=== PATIENT | female | born 1980 | race Caucasian/White ===

== ENCOUNTER 2023-10-18 00:09 | Emergency (ER) | payer OTHER, SELFPAY ==
[2023-10-18 00:12] VITALS: BP 156/109
[2023-10-18 00:43] LABS: ALT (SGPT) 20 U/L (0-35); AST (SGOT) 26 U/L (14-36); Albumin 4.5 g/dl (3.5-5.0); Alkaline Phosphatase 111 U/L (38-126); Blood Urea Nitrogen 10 mg/dl (7-17); Calcium 9.3 mg/dl (8.4-10.2); Carbon Dioxide 19 mmol/L (22-30); Chloride 105 mmol/L (98-107); Glucose 149 mg/dl (70-99); Lipase 107 U/L (23-300); Potassium 3.6 mmol/L (3.5-5.1); Sodium 136 mmol/L (135-145); Total Bilirubin 0.7 mg/dl (0.2-1.3); eGFR > 60.00
[2023-10-18 00:52] LABS: Urine Albumin 1+ (Neg - Trace); Urine Bilirubin Negative (Negative); Urine Character Slightly Cloudy (Clear); Urine Color Amber; Urine Glucose Negative (Negative); Urine Ketone Trace (Negative); Urine Leukocyte Trace (Negative); Urine Nitrite Negative (Negative); Urine Occult Blood 4+ (Negative); Urine Urobilinogen Negative (Neg - 1+)
[2023-10-18 00:59] LABS: % Basophils 0.4 % (0-2); % Eosinophils 0.9 % (0-6); % Immature Granulocytes 1.4 % (0-0.5); % Lymphocytes 19.1 % (20.5-51.1); % Monocytes 3.8 % (1.7-9.3); % Neutrophils 74.4 % (42.2-75.2); Absolute Basophils 0.1 10^3/uL (0-0.2); Absolute Eosinophils 0.1 10^3/uL (0-0.7); Absolute Immature Granulocytes 0.2 10^3/uL (0-0.05); Absolute Lymphocytes 2.7 10^3/uL (1.2-3.4); Absolute Monocytes 0.5 10^3/uL (0.1-0.6); Absolute Neutrophils 10.6 10^3/uL (1.4-6.5); Hematocrit 38.7 % (37.0-47.0); Hemoglobin 14.3 g/dL (12.0-16.0); Mean Corpuscular Volume 83.9 fL (81.0-99.0); Mean Platelet Volume 9.3 fL (7.4-10.4); Nucleated Red Blood Cells % 0 %; Platelet Count 389 10^3/uL (130-400); Red Blood Cell Count 4.61 10^6/uL (4.20-5.40); Red Cell Dist. Width 11.9 % (11.5-14.5); White Blood Cell Count 14.2 10^3/uL (4.8-10.8)
[2023-10-18] MEDS: NSS 1000 IV (01:06)
[2023-10-18] MEDS: TORADOL 30 MG IV (01:06)
[2023-10-18 01:10] LABS: Urine Red Blood Cell >100 /HPF (0-2); Urine Squamous Cell >30 /LPF (Few)
--- NOTE | 2023-10-18 02:08 | ED.GENMED ---
History of Present Illness
General
Chief Complaint: Abdominal Pain
Source: patient
Exam Limitations: none
Time Seen by Provider: 10/18/23 00:55
Nursing documentation reviewed up to this point in time: agreed with
Travel History
Have you had any contact with someone who has COVID-19?: No
Do you have any symptoms of coronavirus? Fever > 100 degrees, chills, cough, shortness of breath, sore throat, loss of taste or smell, muscle aches, or headache?: No
History of Present Illness
History of Present Illness:
Patient to ED with complaint of sudden onset right flank pain. Pain started approx 3 hours ago. Reports nausea but no vomiting. PMH of kidney stones. Unsure if this pain feels the same. Denies fever/chills Brought to ED by spouse for eval
Past History
Past History
ED Past Medical History: HTN
ED Past Surgical History: None
Social History
Tobacco: Non-smoker
Review of Systems
Review of Systems
Allergies reviewed?: Yes
All Other Systems: ROS reviewed and negative except as documented in HPI and ROS
Constitutional: Reports no symptoms
EENT: Reports no symptoms
Respiratory: Reports no symptoms
Cardiac: Reports no symptoms
ABD/GI: Reports no symptoms
: Reports flank pain
Musculoskeletal: Reports no symptoms
Skin: Reports no symptoms
Neurological: Reports no symptoms
Psychiatric: Reports no symptoms
Phy Exam
General Physical Exam
General Presentation: well appearing and moderate distress
General age: appears stated age
General Skin: warm and dry
General Habitus: normal
General Mental: alert
General Hydration: appears well hydrated
Gastrointestinal Exam
Gastrointestinal Exam: normal bowel sounds, soft, no organomegaly and no cva tenderness
Palpation: left upper quadrant: No tenderness, left lower quadrant: No tenderness, right upper quadrant: No tenderness and right lower quadrant: Mild tenderness
Musculoskeletal Exam
Musculoskeletal Exam: neuro vasc intact
Skin Exam
Skin Exam: normal color, warm/dry and no rash
Psychiatric Exam
Psychiatric Exam: normal mood/affect
Course
Orders/Labs/Results
Orders:
Orders
10/18/23 00:24
Complete Blood Count/With Diff Urgent
Comprehensive Metabolic Panel Urgent
Lipase Urgent
10/18/23 00:29
Urinalysis Reflex To Culture Urgent
Date Specimen was Collected: 10/18/23
Time Specimen was Collected: 00:28
Urine Microscopic Reflex Cult Urgent
10/18/23 01:00
Ketorolac [Toradol] 30 mg .ROUTE .STK-MED ONE
10/18/23 01:01
0.9% Sodium Chloride 1000 ml [Nss] 1,000 ml IV BOLUS
Ketorolac [Toradol] 30 mg IV NOW STA
10/18/23 01:03
CT Abd/pel Without Iv Or Oral Urgent
Comment:
Reason For Exam: Right flank pain
10/18/23 02:08
HYDROmorphone [Dilaudid] 0.5 mg IV NOW STA
Ondansetron Injectable [Zofran] 4 mg IV NOW STA
10/18/23 02:13
Tamsulosin [Flomax] 0.4 mg PO NOW STA
Abnormal Lab Results
10/18/23 10/18/23
00:24 00:29
WBC 14.2 H 10^3/uL
(4.8-10.8)
Abs Immat Gran (auto) 0.2 H 10^3/uL
(0-0.05)
Absolute Neuts (auto) 10.6 H 10^3/uL
(1.4-6.5)
Immature Gran % 1.4 H %
(0-0.5)
Lymphocytes % 19.1 L %
(20.5-51.1)
Carbon Dioxide 19 L mmol/L
(22-30)
Glucose 149 H mg/dl
(70-99)
Urine Ketones Trace A
(Negative)
Ur Occult Blood Reflex 4+ A
(Negative)
Leukocyte Esterase Rfl Trace A
(Negative)
Urine RBC >100 A /HPF
(0-2)
Urine Albumin (Reflex) 1+ A
(Neg - Trace)
10/18/23 00:24
10/18/23 00:24
Vital Signs
Initial and Last Documented VS:
Initial Vital Signs
Temp Pulse Resp BP Pulse Ox
98.1 F 88 20 156/109 98
10/18/23 00:12 10/18/23 00:12 10/18/23 00:12 10/18/23 00:12 10/18/23 00:12
Last Documented Vital Signs
Temp Pulse Resp BP Pulse Ox
98.1 F 88 20 156/109 98
10/18/23 00:12 10/18/23 00:12 10/18/23 00:12 10/18/23 00:12 10/18/23 00:12
*Radiology
Radiology exam reviewed: radiology read reviewed
*Pulse Oximetry
Patient hypoxic: no
*Critical Care Note
Total Time (30-74mins, 75-104mins- exclusive of procedures): Not Applicable
Update Note
Update Note:
4mm stone right ureter with mild hydro. Discussed findings with patient. Will start Flomax in dept. She will be discharged home and will follo wup with urology. Given instructions on s/s to return to ED and she is agreeable to plan
ED Attending Note
-
Portions of this chart may have been created with voice recognition software.� Occasional wrong word or��sound alike� substitutions may have occurred due to the inherent limitations of voice recognition software.
Discharge Plan
Departure
Patient Disposition: Home (Routine Discharge)
Date of Disposition: 10/18/23
Time of Disposition: 02:13
Patient with high blood pressure during this ER visit?: No
Condition: Good
Covid-19: Not Applicable
Discharge Problem:
Kidney stone
Instructions: Kidney Stones (DC)
Prescriptions:
New
oxycodone-acetaminophen [Percocet] 5-325 mg tablet
1 tab PO Q4HPRN PRN (Reason: pain) Qty: 12 0RF
tamsulosin [Flomax] 0.4 mg capsule
0.4 mg PO DAILY Qty: 14 0RF
No Action
Motrin 100 MG tablet
600 mg PO PRN PRN (Reason: pain) Qty: 0 0RF
valsartan 160 mg Capsule
160 mg PO DAILY
hydrochlorothiazide 25 mg Tablet
25 mg PO DAILY
sertraline 50 mg Tablet
50 mg PO DAILY
Referrals:
Jacoby Vargas MD [Family Provider] -
Joe Pitt MD [Active] - Call in 1-3 days for appt
Activity Restrictions/Additional Instructions:
Return to the emergency department immediately for fever/chills, increasing pain, vomiting, or for any further concerns.
Interventions
Interventions:
*Risk Screen - Suicide Last Done: 10/18/23 00:12
*General Assessment Last Done: 10/18/23 00:12
*Neglect/Abuse Screening Last Done: 10/18/23 00:12
ED- Fall Risk Assessment Last Done: 10/18/23 00:58
[place]-Bonmcz-Vfrezjeama Assessment Last Done: 10/18/23 00:58
[2023-10-18] MEDS: FLOMAX 0.400000000000000022 MG PO (02:25)
[2023-10-18] MEDS: ZOFRAN 4 MG IV (02:26)
[2023-10-18] MEDS: DILAUDID 0.5 MG IV (02:26)
== END 2023-10-18 02:41 | disposition home or self-care (01) ==
LOC: EMR 00:09
PROVIDERS: Emergency Medicine; EMERGENCY PHYSICIAN Emergency Medicine; FAMILY PHYSICIAN Family Medicine
DX: N13.2 Hydronephrosis with renal and ureteral calculous obstruction (principal); I10 Essential (primary) hypertension; F41.9 Anxiety disorder, unspecified; Z87.442 Personal history of urinary calculi; Z88.5 Allergy status to narcotic agent; Z88.8 Allergy status to other drugs, medicaments and biological substances
CPT/HCPCS: 99284; 96374; 96375 ×2; 96361; 74176; 80053; 81003; 81015; 83690; 85025

== ENCOUNTER 2023-10-20 20:26 | Observation (INO) | payer OTHER, SELFPAY ==
[2023-10-20] VITALS (10 sets, daily range): BP systolic 140–156; BP diastolic 90–103; BMI 28.7
[2023-10-20] MEDS: ZOFRAN ODT (ORALLY DISINTEGRATING) 4 MG PO (11:51)
[2023-10-20 12:00] LABS: % Basophils 0.2 % (0-2); % Eosinophils 0.3 % (0-6); % Immature Granulocytes 0.6 % (0-0.5); % Lymphocytes 12.1 % (20.5-51.1); % Monocytes 4.1 % (1.7-9.3); % Neutrophils 82.7 % (42.2-75.2); Absolute Eosinophils 0.1 10^3/uL (0-0.7); Absolute Immature Granulocytes 0.1 10^3/uL (0-0.05); Absolute Lymphocytes 2.1 10^3/uL (1.2-3.4); Absolute Monocytes 0.7 10^3/uL (0.1-0.6); Absolute Neutrophils 14.3 10^3/uL (1.4-6.5); Hematocrit 41.3 % (37.0-47.0); Hemoglobin 14.9 g/dL (12.0-16.0); Mean Corp Hgb Conc. 36.1 g/dL (33.0-37.0); Mean Corpuscular Hgb 30.8 pg (27.0-31.0); Mean Corpuscular Volume 85.5 fL (81.0-99.0); Mean Platelet Volume 9.1 fL (7.4-10.4); Nucleated Red Blood Cells % 0 %; Platelet Count 421 10^3/uL (130-400); Red Blood Cell Count 4.83 10^6/uL (4.20-5.40); Red Cell Dist. Width 11.9 % (11.5-14.5); White Blood Cell Count 17.3 10^3/uL (4.8-10.8)
[2023-10-20 12:02] LABS: Urine Albumin Trace (Neg - Trace); Urine Bilirubin Negative (Negative); Urine Character Clear (Clear); Urine Color Yellow; Urine Glucose Negative (Negative); Urine Ketone 3+ (Negative); Urine Leukocyte Negative (Negative); Urine Nitrite Negative (Negative); Urine Occult Blood 2+ (Negative); Urine Specific Gravity 1.015 (<1.030); Urine Urobilinogen Negative (Neg - 1+)
[2023-10-20 12:14] LABS: Urine Squamous Cell >30 /LPF (Few); Urine White Cell 0-2 /HPF (0-5)
[2023-10-20 12:22] LABS: AST (SGOT) 27 U/L (14-36); Albumin 4.8 g/dl (3.5-5.0); Alkaline Phosphatase 122 U/L (38-126); Blood Urea Nitrogen 11 mg/dl (7-17); Calcium 9.7 mg/dl (8.4-10.2); Carbon Dioxide 26 mmol/L (22-30); Chloride 98 mmol/L (98-107); Glucose 113 mg/dl (70-99); Potassium 3.6 mmol/L (3.5-5.1); Sodium 136 mmol/L (135-145); Total Bilirubin 1.5 mg/dl (0.2-1.3); Total Protein 8.3 g/dl (6.3-8.2); eGFR > 60.00
[2023-10-20 12:27] LABS: ALT (SGPT) 31 U/L (0-35)
[2023-10-20] MEDS: DILAUDID 0.5 MG IV (14:38)
[2023-10-20] MEDS: NSS 1000 IV (14:39)
--- NOTE | 2023-10-20 14:39 | ED.GENMED ---
History of Present Illness
General
Chief Complaint: Flank Pain
Source: patient
Exam Limitations: none
Time Seen by Provider: 10/20/23 14:23
Nursing documentation reviewed up to this point in time: agreed with
Travel History
Have you had any contact with someone who has COVID-19?: No
Do you have any symptoms of coronavirus? Fever > 100 degrees, chills, cough, shortness of breath, sore throat, loss of taste or smell, muscle aches, or headache?: No
History of Present Illness
History of Present Illness:
43-year-old female with history of hypertension who presents to the emergency room for evaluation of flank pain. Patient was seen here 2 days ago with right flank pain was diagnosed with a right-sided kidney stone. She was discharged with Flomax
and Percocet for pain control. She says that pain was reasonably well-controlled for 24 hours but yesterday became much more severe and has been constant since then. She says that it is not adequately controlled with lnii-kyz-ycwkeau meds and
Percocet and she is now having significant nausea with vomiting and so she returned to the emergency room. She has not had any fevers or chills. No dysuria or hematuria. She denies any other new complaints.
Past History
Past History
ED Past Medical History: HTN
ED Past Surgical History: None
Social History
Tobacco: Non-smoker
Review of Systems
Review of Systems
All Other Systems: ROS reviewed and negative except as documented in HPI and ROS
Constitutional: Denies fever or chills
Respiratory: Denies trouble breathing
Cardiac: Denies chest pain
ABD/GI: Reports nausea and vomiting; Denies abdominal pain
: Reports flank pain; Denies dysuria or bleeding
Musculoskeletal: Denies neck pain or back pain
Neurological: Denies headache, weakness or numbness
Phy Exam
Physical Exam
Physical Exam:
General: Awake, alert, oriented x3; appears mildly uncomfortable
Head: Normocephalic, atraumatic
Eyes: Conjunctiva normal, sclera anicteric
Throat: Airway intact, handling secretions
Neck: Trachea midline, supple without meningismus
Lungs: Clear to auscultation bilaterally, no wheezing, rales, rhonchi
Heart: Tachycardia with regular rhythm, no murmurs, gallops, or rubs
Abd: Soft, non distended, nontender
Back: No CVA tender
Neuro: Cranial nerves grossly intact, speech fluid
Skin: no rash
Extremities: No edema in extremities, warm well-perfused
Scores
Heart Failure Risk
Heart Failure Risk Score: Not Applicable
Heart Score for Chest Pain Patients
STEMI patient?: Not applicable
Withdrawal Assessment of Alcohol
Withdrawal Assessment Completed?: Not applicable
Course
Orders/Labs/Results
Orders:
Orders
10/20/23 11:49
Ketorolac [Toradol] 30 mg .ROUTE .STK-MED ONE
Ondansetron Orally Disint [Zofran Odt (Orally Disintegrating)] 4 mg .ROUTE .STK-MED ONE
10/20/23 11:50
Complete Blood Count/With Diff Urgent
Comprehensive Metabolic Panel Urgent
Urinalysis Reflex To Culture Urgent
Date Specimen was Collected: 10/20/23
Time Specimen was Collected: 11:44
Urine Microscopic Reflex Cult Urgent
Ondansetron Orally Disint [Zofran Odt (Orally Disintegrating)] 4 mg PO NOW STA
10/20/23 14:26
CT Abd/pel Without Iv Or Oral Urgent
Comment:
Reason For Exam: flank pain
HCG, Serum Qualitative Screen Urgent
Test Result ONCE
10/20/23 14:29
Add On- LAB Urgent
Tests Added?: qualitative HCG serum
10/20/23 14:31
0.9% Sodium Chloride 1000 ml [Nss] 1,000 ml IV BOLUS
HYDROmorphone [Dilaudid] 0.5 mg IV NOW STA
Abnormal Lab Results
10/20/23
11:50
WBC 17.3 H 10^3/uL
(4.8-10.8)
Plt Count 421 H 10^3/uL
(130-400)
Abs Immat Gran (auto) 0.1 H 10^3/uL
(0-0.05)
Absolute Neuts (auto) 14.3 H 10^3/uL
(1.4-6.5)
Absolute Monos (auto) 0.7 H 10^3/uL
(0.1-0.6)
Immature Gran % 0.6 H %
(0-0.5)
Neutrophils % 82.7 H %
(42.2-75.2)
Lymphocytes % 12.1 L %
(20.5-51.1)
Creatinine 1.1 H mg/dL
(0.6-1.0)
Glucose 113 H mg/dl
(70-99)
Total Bilirubin 1.5 H mg/dl
(0.2-1.3)
Total Protein 8.3 H g/dl
(6.3-8.2)
Urine Ketones 3+ A
(Negative)
Ur Occult Blood Reflex 2+ A
(Negative)
Urine RBC 3-6 A /HPF
(0-2)
10/20/23 11:50
10/20/23 11:50
Vital Signs
Initial and Last Documented VS:
Initial Vital Signs
Temp Pulse Resp BP Pulse Ox
37.2 C 116 22 156/90 94
10/20/23 11:39 10/20/23 11:39 10/20/23 11:39 10/20/23 11:39 10/20/23 11:39
Last Documented Vital Signs
Temp Pulse Resp BP Pulse Ox
37.2 C 116 22 156/90 94
10/20/23 11:39 10/20/23 11:39 10/20/23 11:39 10/20/23 11:39 10/20/23 11:39
MDM/Problems Addressed
Differential Diagnosis Includes:
Kidney stone
MDM/Problems Addressed:
43-year-old female presents for the second time with severe flank pain; diagnosed with a kidney stone 2 days ago and symptoms now refractory to oral meds. Hypertensive and tachycardic. Afebrile. Exam as above. Plan to place an IV check labs
including a CBC and a CMP, hCG, urinalysis. Provide fluids, pain control, antiemetic. Will discuss with urology. Monitor closely reassess after the above.
Labs reviewed: CBC shows increasing WBC to 17.3 today; fortunately she is afebrile and her urinalysis shows no signs of an acute infection. An abundance of caution will cover with a dose of IV Rocephin. Her CMP shows uptrending creatinine to 1.1
today from 0.8 two days ago. IV fluids in progress. Case discussed with urology will plan to admit to urology service plan likely for stent tomorrow.
Acute Exacerbation and/or Progression of Chronic Illness:
Acutely hypertensive
Acute Exacerbation and/or Progression of Chronic Illness: HTN
*Radiology
Radiology exam reviewed: radiology read reviewed
*Pulse Oximetry
Patient hypoxic: no
*Critical Care Note
Total Time (30-74mins, 75-104mins- exclusive of procedures): Not Applicable
Data Reviewed
Review of Other/Old Records Reveals: Labs, Records and Radiology Studies
Source: patient and records
Patient Management
Discussion with other providers: [employer] Cost Estimator (Discussed with urology)
Escalation/DeEscalation of care consider admission/obs:
Admission indicated
ED Attending Note
-
Portions of this chart may have been created with voice recognition software.� Occasional wrong word or��sound alike� substitutions may have occurred due to the inherent limitations of voice recognition software.
Discharge Plan
Departure
Patient Disposition: Admit
Date of Disposition: 10/20/23
Time of Disposition: 14:46
Admit to doctor: Ernst
Presentation/result/management discussed w/ accepting MD/DO: urology
Discharge Problem:
Right nephrolithiasis, DALE (acute kidney injury)
Prescriptions:
No Action
Motrin 100 MG tablet
600 mg PO PRN PRN (Reason: pain) Qty: 0 0RF
valsartan 160 mg Capsule
160 mg PO DAILY
hydrochlorothiazide 25 mg Tablet
25 mg PO DAILY
sertraline 50 mg Tablet
50 mg PO DAILY
oxycodone-acetaminophen [Percocet] 5-325 mg tablet
1 tab PO Q4HPRN PRN (Reason: pain) Qty: 12 0RF
tamsulosin [Flomax] 0.4 mg capsule
0.4 mg PO DAILY Qty: 14 0RF
Interventions
Interventions:
*Risk Screen - Suicide Last Done: 10/20/23 11:41
*General Assessment Last Done: 10/20/23 11:41
*Neglect/Abuse Screening Last Done: 10/20/23 11:41
*ED COVID-19 Vaccine History Last Done: 10/20/23 14:27
ZN-Hkfwyc-Ujkxmoqatq Assessment Last Done: 10/20/23 14:30
ED-Female Genitourinary Assessment Last Done: 10/20/23 14:30
[2023-10-20] MEDS: ROCEPHIN 1000 MG IV (15:07)
[2023-10-20 15:49] LABS: HCG, Serum Qualitative Screen Negative
--- NOTE | 2023-10-20 16:13 | HP.FOC2 ---
Focused History & Physical
Chief Complaint
HPI:
Chief Complaint: Right Ureteral Stone
HPI / Indication for Planned Procedure: HPI:
Chief Complaint: � Right Ureteral Stone
HPI / Indication for Planned Procedure:�
10/18/23 abrupt onset of right flank pain --> ED; CT: 5 mm proximal� Right Ureteral Stone; discharged on meds
10/20/23 returned to ED due to intractable pain with nausea and vomiting
Relevant Past Medical History: Other (Diabetes, Hypertension and Other (previous stone episode '20 years ago'; cholesterolemia); mood d/o)
Relevant Social History: Negative
Relevant Family History: Negative
Relevant Past Surgical History: Negative
Review of Systems
Review of Pertinent Systems: All Systems Negative Except for the Following Positives (pain, nausea and vomiting)
Medication
See Medication form for detailed medications: Yes
Medication List (including Herbals & OTC):
hydrochlorothiazide 25 mg tablet 25 mg PO DAILY Fluid Retention/Swelling 07/16/22
sertraline 50 mg tablet 50 mg PO DAILY depression 07/16/22
Lactobac no.2-Bifidobac no.1-S. thermo 112.5 billion cell capsule (Visbiome) 1 cap PO DAILY 10/20/23
oxycodone-acetaminophen 5 mg-325 mg tablet (Percocet) 1 tab PO Q4HPRN PRN severe pain 10/20/23
tamsulosin 0.4 mg capsule (Flomax) 0.4 mg PO DAILY Urinary Issue 10/20/23
valsartan 160 mg tablet 160 mg PO DAILY 10/20/23
Medications Reviewed: Yes
Allergies and Reactions
Patient has Allergies: Yes
Noted Allergies and Reactions:
Allergy/AdvReac Type Severity Reaction Status Date / Time
codeine [Codeine] Allergy nausea Verified 10/20/23 14:28
nitrofurantoin Allergy Rash Verified 10/20/23 14:28
[From Macrobid]
nitrofurantoin Allergy Rash Verified 10/20/23 14:28
macrocrystalline
[From Macrobid]
Pertinent Physical Exam
All Other Systems: Negative
Head/Neck: Normal
Lungs: Normal
Heart: Normal
Abdomen: Normal
Extremities: Normal
Neurological: Normal
Diagnosis / Assessment
Right Ureteral Stone causing intractable pain, nausea and vomiting
Plan / Procedure
right ureteroscopy. laser lithotripsy, stenting
consent sign; mother at bedside
Anesthesia/Sedation to be done by Anesthesia Provider: Yes
[2023-10-20] MEDS: ZOFRAN 4 MG IV (17:38)
[2023-10-20] MEDS: XANAX 0.25 MG PO (20:33)
--- NOTE | 2023-10-20 21:15 | PTCARENOTE ---
Pt arrived to room 435-01. Pt ambulated from stretcher to bed. Pt AAOx3, VSS. Pt c/o 03/02 R abd pain. Pt in no signs of acute distress, respirations regular. Pt oriented to room, call grace placed within reach.
[2023-10-20] MEDS: DIOVAN 160 MG PO (21:56)
[2023-10-20] MEDS: FLOMAX 0.400000000000000022 MG PO (21:56)
[2023-10-20] MEDS: LOVENOX 40 MG SC (21:56)
[2023-10-20] MEDS: ZOLOFT 50 MG PO (21:57)
[2023-10-20] MEDS: ORETIC 25 MG PO (21:57)
[2023-10-20] MEDS: TORADOL 15 MG IV (21:57)
[2023-10-20] MEDS: NORMOSOL-R 1000 IV (21:58)
[2023-10-21] VITALS (13 sets, daily range): BP systolic 125–169; BP diastolic 88–109
[2023-10-21] MEDS: TORADOL 15 MG IV ×3 (03:45→14:02)
[2023-10-21] MEDS: NORMOSOL-R 1000 IV ×2 (11:34→15:21)
[2023-10-21] MEDS: DILAUDID 0.25 MG IV ×2 (13:54→14:00)
[2023-10-21] MEDS: Pyridium 200 MG PO (14:13)
[2023-10-21] MEDS: DILAUDID 0.5 MG IV (14:16)
[2023-10-21] MEDS: ZOFRAN 4 MG IV (14:52)
[2023-10-21] MEDS: DIOVAN 160 MG PO (15:48)
[2023-10-21] MEDS: VISBIOME 1 CAP PO (15:49)
[2023-10-21] MEDS: ORETIC 25 MG PO (15:49)
[2023-10-21] MEDS: ZOLOFT 50 MG PO (15:49)
--- NOTE | 2023-10-21 16:07 | CM ---
manager intranet reviewed patient's chart and patient was admitted under OBS, OBS letter provided to patient and signed, patient lives with spouse in a one story home, patient is independent with adl's and ambulation, no dme, patient drives, patient
uses [facility] pharmacy [facility] [address]
PCP: Dr. Vargas
Plan; Home today no needs.
[2023-10-21] MEDS: LOVENOX 40 MG SC (17:12)
[2023-10-21] MEDS: PERCOCET 5/325 2 TABLET PO (17:13)
== END 2023-10-21 18:23 | disposition home or self-care (01) ==
LOC: 4 WEST ACU 20:26
PROVIDERS: Student in an Organized Health Care Education/Training Program; ADMITTING PHYSICIAN Specialist; EMERGENCY PHYSICIAN Emergency Medicine; FAMILY PHYSICIAN Family Medicine
DX: N20.2 Calculus of kidney with calculus of ureter (principal); R10.9 Unspecified abdominal pain; I10 Essential (primary) hypertension; R11.2 Nausea with vomiting, unspecified; R00.0 Tachycardia, unspecified; N17.9 Acute kidney failure, unspecified; E11.9 Type 2 diabetes mellitus without complications; E78.00 Pure hypercholesterolemia, unspecified; Z87.442 Personal history of urinary calculi; Z88.3 Allergy status to other anti-infective agents; Z88.5 Allergy status to narcotic agent
CPT/HCPCS: 52356; 74018; 76000; 80053; 81003; 81015; 84703; 85025; 96374; 96375; 99285; C1894; C2617; G0378